=== PATIENT | male | born 1980 | race Caucasian/White ===

== ENCOUNTER 2017-04-01 13:41 | Emergency (ER) | payer SELFPAY ==
[2017-04-01 13:51] VITALS: TEMP 98.4
--- NOTE | 2017-04-01 14:13 | ED ---
General Adult HPI - General Chief complaint: Urogenital Stated complaint: Urogenital Time Seen by Provider: 04/01/17 14:00 Source: patient, RN notes reviewed Mode of arrival: ambulatory Limitations: no limitations - History of Present Illness Initial comments: Patient 36-year-old male who presents emergency room today with a chief complaint of increased swelling to the right testicle. He states that 2 days ago while was at work he noticed some pain to the area. States he was out doing anything particular at the time when he felt this. 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 Patient states that his morning was getting ready for work he noticed that the swollen. States it is locally tender. He denies any other complaints or symptoms. Patient states is not worried about any STDs. Patient denies any recent fever, chills, shortness of breath, chest pain, back pain, abdominal pain, nausea or vomiting, numbness or tingling, dysuria or hematuria, constipation or diarrhea, headaches or visual changes, or any other complaints. - Related Data Previous Rx's Medication Instructions Recorded Ciprofloxacin HCl [Cipro] 500 mg PO Q12HR #20 day 04/01/17 Allergies Allergy/AdvReac Type Severity Reaction Status Date / Time No Known Allergies Allergy Verified 04/01/17 13:51 Review of Systems ROS Statement: Those systems with pertinent positive or pertinent negative responses have been documented in the HPI. ROS Other: All systems not noted in ROS Statement are negative. Past Medical History Past Medical History: No Reported History History of Any Multi-Drug Resistant Organisms: None Reported Past Surgical History: No Surgical Hx Reported Past Psychological History: No Psychological Hx Reported Smoking Status: Never smoker Past Alcohol Use History: Occasional Past Drug Use History: None Reported General Exam - General Exam Comments Initial Comments: General: The patient is awake and alert, in no distress, and does not appear acutely ill. Eye: Pupils are equal, round and reactive to light, extra-ocular movements are intact. No nystagmus. There is normal conjunctiva bilaterally. No signs of icterus. Ears, nose, mouth and throat: There are moist mucous membranes and no oral lesions. Neck: The neck is supple, there is no tenderness or JVD. Cardiovascular: There is a regular rate and rhythm. No murmur, rub or gallop is appreciated. Respiratory: Lungs are clear to auscultation, respirations are non-labored, breath sounds are equal. No wheezes, stridor, rales, or rhonchi. Gastrointestinal: Soft, non-distended, non-tender abdomen without masses or organomegaly noted. There is no rebound or guarding present. No CVA tenderness. Bowel sounds are unremarkable. Musculoskeletal: Normal ROM, no tenderness. Strength 5/5. Sensation intact. Pulses equal bilaterally 2+. Neurological: A&O x 3. CN II-XII intact, There are no obvious motor or sensory deficits. Coordination appears grossly intact. Speech is normal. Skin: Skin is warm and dry and no rashes or lesions are noted. Psychiatric: Cooperative, appropriate mood & affect, normal judgment. : Moderate swelling to the right testicle. Locally tender. Limitations: no limitations Course Vital Signs 04/01/17 04/01/17 13:49 14:21 Temperature 98.4 F Pulse Rate 92 78 Respiratory 20 16 Rate Blood Pressure 138/78 122/76 O2 Sat by Pulse 99 98 Oximetry Medical Decision Making - Medical Decision Making Patient at this times told nursing staff that he needs to leave he has a prior engagement. Patient has not had his ultrasound. Was discussed about the importance have results sent to rule out possible testicular torsion versus epididymitis/orchitis. Patient states that he has to leave to [employer] his children. Patient will be discharged signing out AMA. His UA does show 12 white cells. Will be started on antibiotics. Patient is advised to have ultrasound obtained as soon as possible. - Lab Data Lab Results 04/01/17 Range/Units 14:20 Urine Color Yellow Urine Appearance Clear (Clear) Urine pH 5.5 (5.0-8.0) Ur Specific [place] 1.022 (1.001-1.035) Urine Protein Trace H (Negative) Urine Glucose (UA) Negative (Negative) Urine Ketones Trace H (Negative) Urine Blood Trace H (Negative) Urine Nitrite Negative (Negative) Urine Bilirubin Negative (Negative) Urine Urobilinogen <2.0 (<2.0) mg/dL Ur Leukocyte Esterase Small H (Negative) Urine RBC 3 (0-5) /hpf Urine WBC 12 H (0-5) /hpf Urine Bacteria Rare H (None) /hpf Urine Mucus Occasional H (None) /hpf Disposition Clinical Impression: Testicular swelling, right Disposition: Left Against Medical Advice Condition: Undetermined Additional Instructions: Please obtain ultrasound as soon as possible. Please use antibiotics as prescribed. Prescriptions: Ciprofloxacin HCl [Cipro] 500 mg PO Q12HR #20 day Referrals: None,Stated [Primary Care Provider] - 1-2 days Time of Disposition: 15:03
[2017-04-01 14:24] VITALS: BP 122/76; PULSE 78; RESP 16
[2017-04-01 14:36] LABS: Appearance,Urine Clear (Clear); Bacteria,Urine Rare /hpf; Bilirubin,Urine Negative (Negative); Glucose,Urine (UA) Negative (Negative); Ketones,Urine Trace (Negative); Leukocyte Esterase,Urine Small (Negative); Mucus,Urine Occasional /hpf; Nitrite,Urine Negative (Negative); PH, Urine 5.5 (5.0-8.0); Particle Count 3159; Protein,Urine Trace (Negative); RBC,Urine 3 /hpf (0-5); Specific Gravity,Urine 1.022 (1.001-1.035); UA Billing (MACRO vs. MICRO) MICRO; Urobilinogen,Urine <2.0 mg/dL (<2.0); WBC,Urine 12 /hpf (0-5)
--- NOTE | 2017-04-01 15:36 | US ---
EXAMINATION TYPE: US scrotum with doppler. Grayscale and color Doppler Duplex imaging performed of victor manuel marin scrotum. DATE OF EXAM: 04/01/2017 COMPARISON: NONE CLINICAL HISTORY: Pain. swelling EXAM MEASUREMENTS: TESTICLES: Right Testicle: 4.3 x 2.8 x 3.0 cm Left Testicle: 3.7 x 2.3 x 2.4 cm EPIDIDYMIS HEAD: Right Epididymis: 1.4 x 1.9 x 1.5 cm Left Epididymis: 1.2 x 0.9 x 1.7 cm Doppler performed to assess for testicular vascularity; good bilateral color flow and waveforms are s een. There is no evidence of testicular torsion. Presence of hydroceles: yes, septated on right Presence of varicoceles: yes, on left septated hydrocele and epididymitis of right testis IMPRESSION: 1. There appears to be enlargement of the right epididymis correlate for epididymitis. 2. There is to be evidence of hydroceles bilaterally with some septation on the right. Correlate for infection.
[2017-04-03] MEDS ORDERED: cefTRIAXone 250 MG VIAL IM STA (10:59)
[2017-04-03] MEDS ORDERED: AZITHROMYCIN 500 MG TAB PO STA (10:59)
== END 2017-04-01 16:05 | disposition left against medical advice (07) ==
LOC: EC 13:41
DX: N50.89 Other specified disorders of the male genital organs (principal)
CPT/HCPCS: 76870; 81001; 87491; 87591; 93975; 99284